=== PATIENT | male | born 1955 | race Caucasian/White ===

== ENCOUNTER 2017-11-30 01:29 | Inpatient (IN) | payer MEDICAID ==
[~2017-11-30] VITALS: Ht 182.9 cm; Wt 91.6 kg
--- NOTE | ~2017-11-30 | PR ---
[place], [place] PROGRESS NOTE NAME: CLARKE WEBER UNIT #: [id number] ROOM: 310 DOCTOR: BERHANE VILLAGOMEZ MD BIRTHDATE: [birth year] DOS: 12/08/2017 SUBJECTIVE: The patient seen and spoke with the nursing staff. Per staff, the patient is a very demanding, irritable and angry at times, asked for medication when it was not the time. Per nursing staff, he is compliant with his medication and he slept well last night. The patient was on his bed. He got up when I called his name, but remained lying down on the bed. He said that he is feeling sleepy. He did not talk about his medication. He said that he is doing "okay." He then turned and covered his face. MENTAL STATUS EXAMINATION: Pleasant, cooperative, described his mood as "fine." Affect, mood congruent. Thought process goal directed. No flight of ideas or loosening of association. He denied auditory or visual hallucination. No delusion or paranoia noted. He denied suicidal ideation, intent or plan. He also denied homicidal ideation, intent or plan. PLAN: 1. Continue current medication and care. 2. Continue redirection. 3. Supportive care. 4. Encourage activities and groups. BERHANE VILLAGOMEZ MD CM:PNTRANS [id number] BERHANE VILLAGOMEZ MD 12/09/17 0519 interface
--- NOTE | ~2017-11-30 | DS ---
[place], [place] DISCHARGE SUMMARY NAME: CLARKE WEBER UNIT #: [id number] ROOM: 310 DOCTOR: MANDO ARROYO MD BIRTHDATE: [birth year] DOS: 12/10/2017 CHIEF COMPLAINT: "Those security guards have no business telling me they are going to knock my teeth out, I am going to knock their teeth out." HISTORY OF PRESENT ILLNESS: This is a 62-year-old white male who is a resident of [facility] in [place], [place]. The patient has a lengthy history of schizoaffective disorder and has been decompensating rapidly over the last several weeks prior to this admission. During this period of time, he has become increasingly delusional and psychotic. He believes that there is a plot for people at the facility to get him and he believes that people have actively made threats to hurt him. He believes that the security guards here at the hospital have threatened to punch his teeth out and in reality, he never even met the security guards here at the hospital. He has continued to escalate to the point where he has been verbally and physically aggressive towards others. He has attempted to strike out at both staff and other residents. Because he represented such a substantial risk of harm to self and others. He was admitted to the Behavioral Health Care Unit at [facility] to rule out any organic factors, to attempt to engage in individual and rowe milieu activities, to stabilize on medication, returning then to the least restrictive environment when psychiatrically stable. PAST MEDICAL HISTORY: Remarkable for an aneurysm of the brain with clipping, COPD, diabetes, hypertension, hyperlipidemia, seborrheic dermatitis of the scalp, seizure disorder, nicotine abuse and candidiasis. SUMMARY OF HOSPITAL COURSE: The patient was admitted to the unit where he was started on Zyprexa 5 mg at bedtime and the dose was rapidly increased to 10 mg twice daily. He was maintained on Invega 6 mg in the morning, which was ultimately increased to 9 mg in the morning and he was loaded with Invega Sustenna 234 mg and then reloaded with 156 mg. His serum ammonia level upon admission was markedly elevated at 90, so he was started on lactulose 30 grams b.i.d. Vitamin D level was very low at 10.2, so he was started on vitamin D 50,000 International Units weekly. With the combination of the Zyprexa and the Invega, the patient's mental status cleared dramatically. He still continued to be somewhat attention seeking, but he redirected with just simple verbal prompting. He had no further episodes of lashing out physically. He was sleeping well, eating well. He was tolerating the current medication regimen well without any apparent sedation, somnolence, extrapyramidal symptoms or tardive dyskinesia. He was voicing readiness and a willingness to return back to [place]. The patient had improved sufficiently by 12/10/2017 to return back to [place] where I will follow him upon his readmission there. MENTAL STATUS AT DISCHARGE: The patient was alert and oriented to person, place, and very much to time. Mood was strongly trending towards euthymia. Affect was appropriate. There was no lawanda, hypomania or psychosis. Memory had some gaps for short term events. FINAL DIAGNOSES: Schizoaffective disorder and Alzheimer's dementia. [place], [place] DISCHARGE SUMMARY NAME: CLARKE WEBER UNIT #: [id number] ROOM: 310 DOCTOR: MANDO ARROYO MD BIRTHDATE: [birth year] PLAN: All of his prescriptions have been E-scribed to [facility] that services [place]. The patient will be readmitted to [place] where I will follow him upon his readmission there. He is medically and psychiatrically stable. His biopsychosocial needs will be met by the staff there at [place]. MANDO ARROYO MD CM:DISCHARG [id number] MANDO ARROYO MD 12/10/17 1045 interface
--- NOTE | ~2017-11-30 | PR ---
[place], [place] PROGRESS NOTE NAME: CLARKE WEBER UNIT #: [id number] ROOM: 310 DOCTOR: MANDO ARROYO MD BIRTHDATE: [birth year] DOS: 12/03/2017 CHIEF COMPLAINT: "This place is full of shit." SUMMARY OF THE VISIT: The patient was interviewed as he rested quietly in bed. As I approached, he began to state profanities and was upset with perceived inadequacies of treatment. Again, he continues to complain of things that are not occurring, but rather a part of his paranoid delusion. He continues to be very labile and very easily agitated. He is tolerating the current medication regimen well and I see no tardive dyskinesia, extrapyramidal symptoms, sedation or somnolence. MENTAL STATUS: He is alert and oriented with some time gaps. Mood does still seem to be wild and very labile. Affect at times is inappropriate. There is no lawanda or hypomania. There is still significant delusional system present. Memory for short term events is poor. PLAN: He did receive Invega Sustenna 234 mg IM today. I will give him his secondary loading dose of Invega Sustenna 156 mg IM on December 07. Serum ammonia level is down to 35. Valproic acid level was therapeutic at 85.5 and phenobarb at 19.5. Continue to support and maintain, monitor, engage in individual and rowe milieu activities, returning to the least restrictive environment when stable. MANDO ARROYO MD CM:PNTRANS [id number] MANDO ARROYO MD 12/03/17 1025 interface
--- NOTE | ~2017-11-30 | PR ---
[place], [place] PROGRESS NOTE NAME: CLARKE WEBER UNIT #: [id number] ROOM: 310 DOCTOR: BIBI VVIAS DO BIRTHDATE: [birth year] DOS: 12/05/2017 CHIEF COMPLAINT: "It's time for my medicine." SUMMARY OF VISIT: The patient was interviewed in the hallway in her wheelchair as he was wheeling himself throughout the hallway. He states that it is time for his medicine and according to staff he frequently requests his medication. There was a slight improvement that he asks for a little less but he continues to fixate on his meds. He still continues to have persecutory and demanding behavior with easy agitation. He is currently tolerating his medications without any evidence of tardive dyskinesia. MENTAL STATUS: He is alert and oriented with some time gaps. Mood seems to be wild, very labile. His affect is inappropriate on occasions. There are no signs of lawanda or hypomania but he does have some delusions present. PLAN: We will check the VPA level and ammonia in the morning. We will maintain his current psychotropic regimen. We will continue to monitor and engage him in individual and group activities returning to the least restrictive environment when psychiatrically stable. BIIB VIVAS DO MANDO ARROYO MD CM:PNPORFIRIO [id number] BIBI VIVAS DO 12/05/17 1343 interface
--- NOTE | ~2017-11-30 | PR ---
[place], [place] PROGRESS NOTE NAME: CLARKE WEBER UNIT #: [id number] ROOM: 310 DOCTOR: BIBI VIVAS DO BIRTHDATE: [birth year] DOS: 12/04/2017 CHIEF COMPLAINT: "The data security coordinator is after me." SUMMARY OF THE VISIT: The patient was interviewed while he was resting in bed. He states that security had threatened him and that he had seen people stabbing each other. He continues to complain of things that are not happening but are a part of his delusions. He is very easily agitated. He is currently tolerating his medication without any evidence of tardive dyskinesia, extra pyramidal symptoms, sedation or somnolence. MENTAL STATUS: He is alert and oriented with some time gaps. His mood seems to be wild and very labile. Affect is inappropriate on occasions. He shows no signs or symptoms of lawanda or hypomania, with significant delusion present. PLAN: We will increase his Invega to 9 mg every day. We will continue to monitor the patient, support and maintain and engage him in individual and group activities, returning to the least restrictive environment when psychiatrically stable. BIBI VIVAS DO MANDO ARROYO MD CM:PNPORFIRIO [id number] BIBI VIVAS DO 12/04/17 1316 interface
--- NOTE | ~2017-11-30 | WRIGHTHP ---
[place], [place] PATIENT HISTORY AND PHYSICAL EXAM NAME: CLARKE WEBER UNIT #: [id number] ROOM: 310 DOCTOR: MANDO ARROYO MD BIRTHDATE: [birth year] DOS: 12/01/2017 INITIAL PSYCHIATRIC EVALUATION CHIEF COMPLAINT: "Those security guards have no business telling me they are going to knock my teeth out, I am going to knock their teeth out." HISTORY OF PRESENT ILLNESS: This is a 62-year-old white male who is a resident of [facility] in [place], [place]. The patient has a lengthy history of schizoaffective disorder and has been decompensating rapidly over the last several weeks. During this period of time, he has become increasingly delusional and psychotic. He believes that there are plots to get him and that people have made threats to him, for example he has complained that security guards told him that they were going to punch his teeth and this is something that did not happen, neither at the group home or here in the hospital. He has continued to escalate to the point where he has made both verbal and physical threats towards others and he has attempted to strike out at staff there and other residents. Because he represented such a substantial risk of harm to self and others, he was admitted to the [facility] to rule out organic factors and attempt to stabilize on medication, returning to the least restrictive environment when stable. PAST MEDICAL HISTORY: Remarkable for an aneurysm of the brain with clipping, COPD, diabetes, hypertension, hyperlipidemia, candidiasis, seborrheic dermatitis of the scalp, seizure disorder and nicotine abuse. MENTAL STATUS: The patient is alert and oriented with time gaps. Mood does seem to be rather labile. Affect at times is inappropriate. He is very paranoid and very delusional and is very hard to redirect and have him calm down, he did though after some prompting. Memory has gaps. DIAGNOSIS: Schizoaffective disorder. PLAN: I have already started him on Zyprexa to attempt to control his psychosis. I will augment with Invega 6 mg in the morning and may utilize Invega Sustenna to improve compliance. Routine screening examinations upon admission show him to have a markedly elevated serum ammonia level of 90. I will start lactulose 30 grams b.i.d. and defer further workup to the hospitalist. He is on both phenobarbital and valproic acid, both of which are very hard on the liver, but he does carry a diagnosis of seizure disorder, so I am not clear what if anything we can do with these medications. Screening examinations also show a low vitamin D level of 10.2. I will go ahead and prescribe vitamin D 50,000 International Units weekly, engage in individual and rowe milieu activity with the ultimate plan to return to the least restrictive environment when psychiatrically stable. [place], [place] PATIENT HISTORY AND PHYSICAL EXAM NAME: CLARKE WEBER UNIT #: [id number] ROOM: 310 DOCTOR: MANDO ARROYO MD BIRTHDATE: [birth year] MANDO ARROYO MD CM:HISPHYS:PATIENT HISTORY AND PHYSICAL EXAMINATION [id number] MANDO ARROYO MD 12/01/17 1049 interface
--- NOTE | ~2017-11-30 | PR ---
[place], [place] PROGRESS NOTE NAME: CLARKE WEBER UNIT #: [id number] ROOM: 310 DOCTOR: BIBI VIVAS DO BIRTHDATE: [birth year] DOS: 12/06/2017 CHIEF COMPLAINT: "I don't wanna be bothered." SUMMARY OF VISIT: The patient was interviewed in the hallway in his wheelchair. He states that he does not like his medication, also that he does not want to go to groups. He was previously from [place]. According to staff, he still continues to have persecutory and demanding behavior with easy agitation. He seems to be tolerating his medication without any evidence of tardive dyskinesia. MENTAL STATUS: He is alert and oriented with some time gaps. Mood seems to be wild and very labile. His affect is in appropriate on occasions. There are no signs of lawanda or hypomania. PLAN: VPA was 72.5 with an increase in ammonia to 87. We will renew his Ativan and his phenobarbital and continue to monitor him. Continue to engage him in individual and group activities, returning to the least restrictive environment when psychiatrically stable. BIBI VIVAS DO MANDO ARROYO MD CM:PNTRANS [id number] BIBI VIVAS DO 12/06/17 1300 interface
--- NOTE | ~2017-11-30 | PR ---
[place], [place] PROGRESS NOTE NAME: CLARKE WEBER UNIT #: [id number] ROOM: 310 DOCTOR: BERHANE VILLAGOMEZ MD BIRTHDATE: [birth year] DOS: 12/09/2017 SUBJECTIVE: The patient seen and spoke with the staff. Per staff, the patient is still demanding in terms of taking his medication. Reportedly, he still plays with his bowel movement and hard to redirect. When I saw him, he was in the day area. He said that he is doing good and also said that he just took a shower. When I asked him about his behavior of smearing feces as he said that he is not going to do that anymore. He denied any side effect from the medication. He reports good sleep and appetite. MENTAL STATUS EXAMINATION: Pleasant, cooperative. Described his mood as "good". Affect was mood congruent. Thought process goal directed. No flight of ideas, loosening of association. He denied auditory or visual hallucination. No delusion or paranoia noted. He denied suicidal ideation, intent or plan. He also denied any homicidal ideation, intent or plan. PLAN: 1. Continue current medication and care. 2. Continue redirection and supportive care. 3. Encourage activities and groups. 4. Final medication management and discharge planned by the regular team. BERHANE VILLAGOMEZ MD CM:PNTRANS 30 40 BERHANE VILLAGOMEZ MD 12/09/172239 interface
--- NOTE | ~2017-11-30 | PR ---
[place], [place] PROGRESS NOTE NAME: CLARKE WEBER UNIT #: [id number] ROOM: 310 DOCTOR: BIBI VIVAS DO BIRTHDATE: [birth year] DOS: 12/07/2017 CHIEF COMPLAINT: "I need my meds." SUMMARY OF VISIT: The patient was interviewed in the hallway. He was insistent that he needed his medication, stated that he slept well. Staff reports that his behavior is similar to previous. He is improving slightly. He does continue to fixate on his medication, fixate on the time. Per staff, he is redirectable and cooperative, though he does get agitated easily. MENTAL STATUS EXAMINATION: He is alert and oriented with certain time gaps. Mood was rather wild and very labile. His affect is inappropriate on occasion. No signs of lawanda or hypomania. He is redirectable and seems to be improving. PLAN: We will continue his current psychotropic regimen at this time. We will continue to monitor him as well as an ammonia level. Plan for an Invega burst of 156 mg IM on 01/02/2018. We will continue to engage him in individual and group activities with the goal to return him to the least restrictive environment when psychiatrically stable. BIBI VIVAS DO MANDO ARROYO MD CM:PNTRANS [id number] BIBI VIVAS DO 12/07/17 1026 interface
--- NOTE | ~2017-11-30 | PR ---
[place], [place] PROGRESS NOTE NAME: CLARKE WEBER UNIT #: [id number] ROOM: 310 DOCTOR: MANDO ARROYO MD BIRTHDATE: [birth year] DOS: 12/02/2017 CHIEF COMPLAINT: "How could I sleep with somebody pissing on the ceiling and shitting on the floor?" SUMMARY OF THE VISIT: The patient was interviewed on multiple occasions. He continues to be rather vulgar and demanding. He states he did not sleep at all last night, although nurses disagree and noticed that he got 8 uninterrupted hours of sleep. He continues to be very bizarre with his comments, stating that the reason he did not sleep was because his roommate was urinating and defecating all over the room. This in reality did not happen at all. He continues to demand medication and states that people are ignoring him on purpose. He is making multiple threats to have somebody bring a gun in here so that he could shoot people because people are not meeting his needs. Attempts to redirect have been unsuccessful and he continues to be very volatile and threatening. MENTAL STATUS: He is alert and oriented with time gaps. Mood does seem to be labile. Affect inappropriate. He jumps from topic to topic and is very paranoid and delusional. Memory has gaps. PLAN: I will go ahead and give him Geodon 20 mg IM with Ativan 2 mg IM given the amount of agitation that he is exhibiting at this moment. We will monitor for risks and benefits. He has tolerated the Invega well, so I will plan to load him with Invega Sustenna 234 mg IM on Sunday morning, helping to improve compliance and bring the blood levels up to a therapeutic range faster, engage in individual and rowe milieu activities, returning to the least restrictive environment when stable. MANDO ARROYO MD CM:PNTRANS 2 2 MANDO ARROYO MD 12/02/17922 interface
[2017-11-30] MEDS ORDERED: ASPIRIN CHEWABL81 MG PO (01:36)
[2017-11-30] MEDS ORDERED: LATU120T PO (01:37)
[2017-11-30] MEDS ORDERED: KLOR-CON M2020 ME1 PO (01:39)
[2017-11-30] MEDS ORDERED: PRAVACHOL20 MG PO (01:40)
[2017-11-30] MEDS ORDERED: SPIRIVA18 MCG PO (01:41)
[2017-11-30] MEDS ORDERED: LOPRESSOR25 MG PO (01:43)
[2017-11-30] MEDS ORDERED: DEPAKOTE DR500 MG PO (01:44)
[2017-11-30] MEDS ORDERED: PHENOBARBITAL32.4 M2 PO (01:45)
[2017-11-30] MEDS ORDERED: ATIVAN1 MG PO (01:46)
[2017-11-30] MEDS ORDERED: THERMOTABS TAB1 EACH PO (01:47)
[2017-11-30] MEDS ORDERED: NON-ASPIRIN325 MG PO (01:48)
[2017-11-30] MEDS ORDERED: ROBITUSSIN DM 105 ML PO (01:50)
[2017-11-30] MEDS ORDERED: NIZORAL 120 ML120 ML T (01:53)
[2017-11-30] MEDS ORDERED: METROGEL60 GM T (01:55)
[2017-11-30] MEDS ORDERED: MYCOLOG CREAM 115 GM T (01:56)
[2017-11-30 12:53] VITALS: BP 129/72
[2017-11-30 20:19] VITALS: BP 119/66
[2017-12-01 07:19] VITALS: BP 105/60
[2017-12-01 07:48] LABS: BASO % 0.3 % (0.0-1.0); EOS # 0.1 10*3/uL (0.0-0.4); EOS % 1.6 % (1.0-4.0); HEMATOCRIT 43.3 % (42.0-52.0); HEMOGLOBIN 15.1 g/dl (14.0-18.0); LYMPH # 3.3 10*3/uL (1.3-4.4); LYMPH % 38.4 % (27.0-41.0); MEAN CELL VOLUME 92.9 fl (80.0-94.0); MEAN CORPUSCULAR HGB 32.4 pg (27.0-31.0); MEAN CORPUSCULAR HGB CONC 34.9 g/dl (33.0-37.0); MEAN PLATELET VOLUME 11.8 fl (9.6-12.3); MONO % 11.3 % (3.0-9.0); NEUT # 4.2 10*3/uL (2.3-7.9); NEUT % 48.1 % (47.0-73.0); PLATELET COUNT AUTOMATED 142 10*3/uL (130-400); RED BLOOD COUNT 4.66 10*6/uL (4.50-5.90); RED CELL DISTRI WIDTH 12.6 % (0-14.5); WHITE BLOOD COUNT 8.7 10*3/uL (4.8-10.8)
[2017-12-01 08:11] LABS: ALBUMIN 3.3 gm/dl (3.1-4.5); ALKALINE PHOSPHATASE 68 U/L (45-117); BUN 4 mg/dl (7-24); CHLORIDE 99 mmol/L (98-107); CHOLESTEROL 138 mg/dL (<200); CREATININE 0.49 mg/dL (0.70-1.30); HDL CHOLESTEROL 45 mg/dl (40-60); LDL CHOLESTEROL 76 mg/dL (9-159); POTASSIUM 3.8 mmol/L (3.5-5.1); SGOT/AST 8 IU/L (3-35); SGPT/ALT 18 U/L (12-78); SODIUM 133 mmol/L (136-145); TRIGLYCERIDES 83 mg/dl (<150); VLDL CHOLESTEROL 17 mg/dL (6-40)
[2017-12-01 08:26] LABS: PHENOBARBITAL (LUMINAL) 19.5 ug/ml (15-40); TOTAL PROTEIN 6.6 gm/dL (6.4-8.2); VALPROIC ACID (DEPAKENE) 85.5 ug/ml (50-100)
[2017-12-01 09:14] LABS: ACT PARTIAL THROMBO TIME 25.1 SECONDS (20.8-31.5); INTERNATIONAL NORM RATIO 1.1 (2.0-3.5)
[2017-12-01 09:16] LABS: VITAMIN D, 25-HYDROXY 10.2 ng/mL (30-100)
[2017-12-01 14:50] LABS: BILIRUBIN NEGATIVE (NEGATIVE); BLOOD NEGATIVE (NEGATIVE); CLARITY CLEAR (CLEAR); COLOR YELLOW (YELLOW); GLUCOSE NEGATIVE (NEGATIVE); KETONE NEGATIVE (NEGATIVE); LEUKO ESTERASE 1+ (NEGATIVE); NITRITE NEGATIVE (NEGATIVE); SPECIFIC GRAVITY <= 1.005 (1.005-1.030); UROBILINOGEN 0.2 E.U./dl (0.2-1.0)
[2017-12-01 15:01] LABS: BACTERIA 1+; EPITHELIAL CELLS 0-2; MUCOUS TRACE; WBC 41-50 wbc/hpf (0-5)
[2017-12-01 19:29] VITALS: BP 110/66
[2017-12-02 07:21] VITALS: BP 151/68
[2017-12-02 19:41] VITALS: BP 138/74
[2017-12-03 07:52] VITALS: BP 143/85
[2017-12-03 20:22] VITALS: BP 127/53
[2017-12-04 08:00] VITALS: BP 121/76
[2017-12-04 19:35] VITALS: BP 118/86
[2017-12-05 09:12] VITALS: BP 119/87
[2017-12-05 20:07] VITALS: BP 132/72
[2017-12-06 08:40] VITALS: BP 126/57
[2017-12-06 20:28] VITALS: BP 137/76
[2017-12-07 07:57] VITALS: BP 112/66
[2017-12-07 20:56] VITALS: BP 141/68
[2017-12-08 07:56] VITALS: BP 114/58
[2017-12-08 19:47] VITALS: BP 128/75
[2017-12-09 07:55] VITALS: BP 122/59
[2017-12-09 20:31] VITALS: BP 126/58
[2017-12-10 07:47] VITALS: BP 118/64
[2017-12-10] MEDS ORDERED: OLANZAPINE10 MG PO (09:19)
[2017-12-10] MEDS ORDERED: DIVALPROEX SOD500 MG PO (09:19)
[2017-12-10] MEDS ORDERED: INVEGA9 MG PO (09:19)
[2017-12-10] MEDS ORDERED: LACTULOSE20 GM/30 M PO (09:19)
[2017-12-10] MEDS ORDERED: INVEGA SUSTENN156 MG IM (09:19)
== END 2017-12-10 14:39 | DRG 885 ==
LOC: 3N 01:29
PROVIDERS: Internal Medicine; Psychiatry & Neurology Psychiatry
DX: F25.9 Schizoaffective disorder, unspecified (principal); E87.1 Hypo-osmolality and hyponatremia; E11.9 Type 2 diabetes mellitus without complications; K72.90 Hepatic failure, unspecified without coma; G30.9 Alzheimer's disease, unspecified; F02.80 Dementia in other diseases classified elsewhere, unspecified severity, without behavioral disturbance, psychotic disturbance, mood disturbance, and anxiety; B37.2 Candidiasis of skin and nail; F23 Brief psychotic disorder; G40.909 Epilepsy, unspecified, not intractable, without status epilepticus; E78.5 Hyperlipidemia, unspecified; I10 Essential (primary) hypertension; J44.9 Chronic obstructive pulmonary disease, unspecified; L21.9 Seborrheic dermatitis, unspecified; L70.9 Acne, unspecified; Z87.891 Personal history of nicotine dependence; Z82.49 Family history of ischemic heart disease and other diseases of the circulatory system; Z88.0 Allergy status to penicillin; Z88.8 Allergy status to other drugs, medicaments and biological substances; Z79.82 Long term (current) use of aspirin; Z79.899 Other long term (current) drug therapy